=== PATIENT | male | born 1980 | race Caucasian/White ===

== ENCOUNTER 2023-11-08 21:44 | Emergency (ER) | payer BC ==
[2023-11-08 22:57] LABS: Absolute Basophils 0.1 K/uL (0-0.5); Absolute Eosinophils 0.1 K/uL (0-0.5); Absolute Lymphocytes (CBC) 1.4 K/uL (0.7-4.9); Absolute Monocytes 0.9 K/uL (0.1-1.3); Absolute Neutrophil 20.6 K/uL (1.8-8.0); Basophils % 0.4 % (0-1.3); Eosinophils % 0.4 % (0-4.4); Hematocrit 39.1 % (39.6-49.0); Hemoglobin 13.2 g/dL (13.6-17.9); MCHC 33.9 g/dL (32.0-36.0); MCV 91.3 fL (80-100); MPV 7.2 fL (7.6-11.3); Monocytes % 3.9 % (3.3-12.3); Neutrophils % 89.3 % (41.7-73.7); Platelets 455 thou/uL (152-406); RBC Red Blood Cell Count 4.28 M/uL (4.33-5.43); Red Cell Distribution Width 12.9 % (12.1-15.2)
[2023-11-08 23:00] LABS: PTT, Activated Partial Thromb 29.4 SECONDS (24.3-36.9); Protime INR 1.57
[2023-11-08 23:14] LABS: Albumin 2.6 g/dL (3.4-5.0); Albumin/Globulin Ratio 0.5 (1.1-1.8); Anion Gap 10.7 mEq/L (5.0-15.0); Bilirubin Total 0.7 mg/dL (0.2-1.0); Globulin 5.2 g/dL (2.3-3.5); Potassium 3.7 mEq/L (3.5-5.1); Protein, Total 7.8 g/dL (6.4-8.2)
--- NOTE | 2023-11-09 01:30 | EDPHYS ---
Physician Documentation [facility] Name: Khoi Brooks Age: 43 yrs Sex: Male : 1980 Arrival Date: 11/08/2023 Time: 21:44 Bed 14 Private MD: ED Physician Branden Macario HPI: 11/08 00:19 This 43 yrs old Male presents to ER via Wheelchair with complaints of Post Surgical kb Bleeding, Post Surgical Pain. 00:20 Pt is a 43 year old male who presents for purulent drainage from AIDEN drain site that kb started yesterday. Pt reports he was driving through [place] last week and his appendix ruptured. Pt was admitted to a hospital there for 2 days and had an appendectomy. States he had a AIDEN drain to [facility] until yesterday when he went back to [place] for a follow up and the surgeon removed it. States he had clear drainage from drain prior to it being removed. He drove home from [place] and noticed thick, white drainage from the spot they pulled the drain from. States the drainage has increased so that is what prompted his visit today. Denies pain, fever. . Historical: - Allergies: 11/07 22:04 No Known Allergies; vc1 - Home Meds: 22:04 unknown antibiotics [Active]; vc1 - PMHx: 22:04 None; vc1 - PSHx: 22:04 Appendectomy; vc1 - Immunization history:: Adult Immunizations up to date, Client reports having NOT received the Covid vaccine. Flu vaccine is not up to date. - Infectious Disease History:: Denies. - Social history:: Smoking status: Patient denies any tobacco usage or history of. Patient/guardian denies using alcohol, street drugs. ROS: 23:04 Constitutional: As per HPI kb Exam: 23:04 Constitutional: This is a well developed, well nourished patient who is awake, alert, kb and in no acute distress. Head/Face: Normocephalic, atraumatic. ENT: Moist Mucous membranes Cardiovascular: Regular rate Respiratory: Respirations even and unlabored. No increased work of breathing. Talking in full sentences Skin: Warm, dry with normal turgor. Normal color. MS/ Extremity: Pulses equal, no cyanosis. Neurovascular intact. Full, normal range of motion. Neuro: Awake and alert, GCS 15, oriented to person, place, time, and situation. Moves all extremities. Normal gait. 23:04 ECG was reviewed by the Attending Physician. 11/08 01:11 Abdomen/GI: Inspection: erythema to LLQ surrounding open wound from AIDEN drain, Bowel kb sounds: normal, Palpation: soft, in all quadrants, mild abdominal tenderness, in the right lower quadrant, moderate abdominal tenderness, in the left lower quadrant, Vital Signs: 11/07 22:01 BP 138 / 96; Pulse 97; Resp 16 S; Temp 98.8(TE); Pulse Ox 97% on R/A; Weight 77.11 kg vc1 (R); Height 5 ft. 11 in. (R); 23:00 BP 137 / 80; Pulse 84; Resp 17 S; Pulse Ox 97% on R/A; ha1 11/08 00:00 BP 125 / 76; Pulse 80; Resp 17 S; Pulse Ox 99% on R/A; ha1 01:00 BP 123 / 73; Pulse 77; Resp 17 S; Pulse Ox 100% ; ha1 02:00 BP 118 / 67; Pulse 71; Resp 17 S; Pulse Ox 97% on R/A; ha1 03:00 BP 127 / 68; Pulse 71; Resp 18 S; Temp 98.6(O); Pulse Ox 97% on R/A; ha1 11/07 22:01 Body Mass Index 23.71 (77.11 kg, 180.34 cm) vc1 MDM: 11/07 21:55 Patient medically screened. 11/08 00:19 Data reviewed: vital signs, nurses notes. kb 00:23 Differential diagnosis: abscess, peritonitis. kb 00:43 Management of patient was discussed with the following: Mechanical Supervisor: Dr Cantu, recommends transfer for interventional radiology. 01:12 Consideration of Admission/Observation Escalation of care including kb admission/observation considered. admission considered, Dr Cantu recommends transfer. Counseling: I had a detailed discussion with the patient and/or guardian regarding the historical points, exam findings, and any diagnostic results supporting the discharge/admit diagnosis, lab results, radiology results, the need to transfer to another facility, [facility] does not immediately have the required specialist. 01:27 Management of patient was discussed with the following: Dr Francis, general kb surgeon, accepts pt for consult. Dr. Islas , hospitalist at [facility] accepts pt for transfer. 11/07 22:09 Order name: Blood Culture Adult (2) kb 11/07 22:09 Order name: CBC with Diff; Complete Time: 23:03 kb 11/07 22:09 Order name: CMP; Complete Time: 23:15 kb 11/07 22:09 Order name: Lactate w/ 2H reflex if indic.; Complete Time: 23:24 kb 11/07 22:09 Order name: Protime (+inr); Complete Time: 23:03 kb 11/07 22:09 Order name: Ptt, Activated; Complete Time: 23:03 kb 11/07 22:09 Order name: Wound Culture kb 11/07 22:09 Order name: CT Abd/Pelvis - IV Contrast Only kb 11/07 22:09 Order name: EKG; Complete Time: 22:10 kb 11/07 22:09 Order name: Accucheck; Complete Time: 23:06 kb 11/07 22:09 Order name: Cardiac monitoring; Complete Time: 22:19 kb 11/07 22:09 Order name: EKG - Nurse/Tech; Complete Time: 22:19 kb 11/07 22:09 Order name: Labs collected and sent; Complete Time: 22:29 kb 11/07 22:09 Order name: O2 Per Protocol; Complete Time: 22:19 kb 11/07 22:09 Order name: O2 Sat Monitoring; Complete Time: 22:19 kb 11/07 22:09 Order name: Vital Signs; Complete Time: 22:29 kb EC/20 23:04 Rate is 86 beats/min. Rhythm is regular. QRS [place] is Normal. NM interval is normal at kb 166 msec. QRS interval is normal at 96 msec. QT interval is normal at 433 msec. Administered Medications: 11/08 01:30 Drug: Piperacillin-Tazobactam IVPB 3.375 grams IVPB once over 60 mins; (mix in NS 100 ha1 mL) Route: IVPB; Infused Over: 60 mins; Site: right antecubital; 02:30 Follow up: Response: No adverse reaction; IV Status: Completed infusion; IV Intake: ha1 100ml 01:31 Drug: Ketorolac IVP 15 mg IVP once Route: IVP; Site: right antecubital; ha1 02:00 Follow up: Response: No adverse reaction; Marked relief of symptoms; Pain is decreased ha1 01:33 Drug: NS 0.9% IV 1000 ml IV at 1000 ml once Route: IV; Rate: 1000 ml; Site: right ha1 antecubital; 03:00 Follow up: Response: No adverse reaction; IV Status: Completed infusion; IV Intake: ha1 1000ml 01:33 Drug: Ondansetron IVP 4 mg IVP once; over 2 minutes Route: IVP; Site: right antecubital;ha1 02:00 Follow up: Response: No adverse reaction; Marked relief of symptoms ha1 Disposition: 22:11 Co-signature as Attending Physician, Branden Macario MD I agree with the assessment sp4 and plan of care. I reviewed the patient's care provided by the Advanced Practice Provider and agree with the diagnosis and treatment plan. Disposition Summary: 11/09/23 01:30 Transfer Ordered Notes: Transfer Location: [facility] kb Reason: Higher level of care kb Condition: Stable kb Problem: new kb Symptoms: are unchanged kb Accepting Physician: Dr. Islas(11/09/23 03:09) ha1 Diagnosis - Intra-abdominal abscess s/p appendectomy kb - Elevated white blood cell count kb Forms: - Medication Reconciliation Form kb - SBAR form kb Signatures: Dispatcher [employer] Soco Mandel, NOEL-C [employer]ITER-Socorro Simpson RN RN vc1 Rosa Wheeler RN RN ha1 Branden Macario MD MD sp4 Corrections: (The following items were deleted from the chart) 11/07 22:10 22:10 BLOOD CULTURE*+BA.LAB.BRZ ordered. EDMS EDMS 22:10 22:10 CBC+H.LAB.BRZ ordered. EDMS EDMS 22:10 22:10 COMPREHENSIVE METABOLIC PANEL+C.LAB.BRZ ordered. EDMS EDMS 22:10 22:10 LACTATE+C.LAB.BRZ ordered. EDMS EDMS 22:10 22:10 PROTIME (+INR)+COAG.LAB.BRZ ordered. EDMS EDMS 22:10 22:10 PTT, ACTIVATED+COAG.LAB.BRZ ordered. EDMS EDMS 22:10 22:10 Wound Culture+BA.LAB.BRZ ordered. EDMS EDMS 11/08 01:38 01:27 Management of patient was discussed with the following: Dr Francis, general kb surgeon, accepts pt for consult. , hospitalist at [facility] accepts pt for transfer. kb 01:38 01:30 Dr segovia kb 03:09 01:38 Dr. Islas ha1
--- NOTE | 2023-11-09 01:30 | ER ---
Nurse's Notes [facility] Name: Khoi Brooks Age: 43 yrs Sex: Male : 1980 Arrival Date: 11/08/2023 Time: 21:44 Bed 14 Private MD: Diagnosis: Intra-abdominal abscess s/p appendectomy;Elevated white blood cell count Presentation: 11/07 22:01 Chief complaint: Patient states: AIDEN drain removed yesterday post appy. new bloody vc1 drainage from site. Coronavirus screen: Client denies travel out of the [place] in the last 14 days. At this time, the client does not indicate any symptoms associated with coronavirus-19. Ebola Screen: No symptoms or risks identified at this time. Initial Sepsis Screen: Does the patient meet any 2 criteria? No. Patient's initial sepsis screen is negative. Does the patient have a suspected source of infection? No. Patient's initial sepsis screen is negative. Risk Assessment: Do you want to hurt yourself or someone else? Patient reports no desire to harm self or others. Onset of symptoms was November 08, 2023. 22:01 Method Of Arrival: Wheelchair vc1 22:01 Acuity: KEARA 3 vc1 Triage Assessment: 22:04 General: Appears in no apparent distress. uncomfortable, Behavior is calm, cooperative. vc1 Pain: Denies pain. EENT: No deficits noted. No signs and/or symptoms were reported regarding the EENT system. Neuro: No deficits noted. Cardenas Agitation-Sedation Scale (RASS): 0 - Alert and Calm Level of Consciousness is awake, alert, obeys commands, Oriented to person, place, time, situation. Cardiovascular: No deficits noted. Denies chest pain, shortness of breath, Capillary refill < 3 seconds Clubbing of nail beds is absent JVD is absent Patient's skin is warm and dry. Respiratory: No deficits noted. Airway is patent Respiratory effort is even, unlabored, Respiratory pattern is regular, symmetrical. GI: Abdomen is flat, non-distended. : No deficits noted. No signs and/or symptoms were reported regarding the genitourinary system. Derm: Skin is intact, is healthy with good turgor, Skin is dry, Skin is normal, Skin temperature is warm Wound noted left lower quadrant Reports drainage from AIDEN drain site. Musculoskeletal: No deficits noted. No signs and/or symptoms reported regarding the musculoskeletal system. Circulation, motion, and sensation intact. Range of motion: intact in all extremities. Historical: - Allergies: 22:04 No Known Allergies; vc1 - Home Meds: 22:04 unknown antibiotics [Active]; vc1 - PMHx: 22:04 None; vc1 - PSHx: 22:04 Appendectomy; vc1 - Immunization history:: Adult Immunizations up to date, Client reports having NOT received the Covid vaccine. Flu vaccine is not up to date. - Infectious Disease History:: Denies. - Social history:: Smoking status: Patient denies any tobacco usage or history of. Patient/guardian denies using alcohol, street drugs. Screenin/21 03:00 [facility] ED Fall Risk Assessment (Adult) History of falling in the last 3 months, ha1 including since admission No falls in past 3 months (0 pts) Confusion or Disorientation No (0 pts) Intoxicated or Sedated No (0 pts) Impaired Gait No (0 pts) Mobility Assist Device Used No (0 pt) Altered Elimination No (0 pt) Score/Fall Risk Level 0 - 2 = Low Risk. Abuse screen: Denies threats or abuse. Denies injuries from another. Nutritional screening: No deficits noted. Tuberculosis screening: No symptoms or risk factors identified. Assessment: 11/07 22:08 General: Appears uncomfortable, Behavior is cooperative. Pain: Complains of pain in ha1 left lower quadrant Pain does not radiate. Pain currently is 7 out of 10 on a pain scale. Quality of pain is described as aching, Pain began 1 day ago. Neuro: Level of Consciousness is awake, alert, obeys commands, Oriented to person, place, time, situation. Cardiovascular: Capillary refill < 3 seconds Patient's skin is warm and dry. Respiratory: Airway is patent Respiratory effort is even, unlabored, Respiratory pattern is regular, symmetrical. GI: DRAINING WOUND ON LEFT LOWER QUADRANT. PT. STATED" I HAD MY DRAINING TUBE REMOVED YESTERDAY AND NOW I AM DRAINING THIS TERRIBLE BAD ODOR LIQUID.". 22:08 GI: Bowel sounds present X 4 quads. Reports PAIN IN THE LEFT LOWER QUADRANT. : No ha1 signs and/or symptoms were reported regarding the genitourinary system. Derm: Skin is pink, warm \\T\\ dry. Musculoskeletal: Circulation, motion, and sensation intact. Range of motion: intact in all extremities. 23:00 Reassessment: Patient and/or family updated on plan of care and expected duration. Pain ha1 level reassessed. Patient is alert, oriented x 3, equal unlabored respirations, skin warm/dry/pink. 11/08 00:00 Reassessment: Patient and/or family updated on plan of care and expected duration. Pain ha1 level reassessed. Patient is alert, oriented x 3, equal unlabored respirations, skin warm/dry/pink. 01:00 Reassessment: Patient and/or family updated on plan of care and expected duration. Pain ha1 level reassessed. Patient is alert, oriented x 3, equal unlabored respirations, skin warm/dry/pink. 02:00 Reassessment: Patient and/or family updated on plan of care and expected duration. Pain ha1 level reassessed. Patient is alert, oriented x 3, equal unlabored respirations, skin warm/dry/pink. 03:00 Reassessment: Patient and/or family updated on plan of care and expected duration. Pain ha1 level reassessed. Patient is alert, oriented x 3, equal unlabored respirations, skin warm/dry/pink. BEING TRANSFER BY EMS. Vital Signs: 11/07 22:01 BP 138 / 96; Pulse 97; Resp 16 S; Temp 98.8(TE); Pulse Ox 97% on R/A; Weight 77.11 kg vc1 (R); Height 5 ft. 11 in. (R); 23:00 BP 137 / 80; Pulse 84; Resp 17 S; Pulse Ox 97% on R/A; ha1 11/08 00:00 BP 125 / 76; Pulse 80; Resp 17 S; Pulse Ox 99% on R/A; ha1 01:00 BP 123 / 73; Pulse 77; Resp 17 S; Pulse Ox 100% ; ha1 02:00 BP 118 / 67; Pulse 71; Resp 17 S; Pulse Ox 97% on R/A; ha1 03:00 BP 127 / 68; Pulse 71; Resp 18 S; Temp 98.6(O); Pulse Ox 97% on R/A; ha1 11/07 22:01 Body Mass Index 23.71 (77.11 kg, 180.34 cm) vc1 ED Course: 11/07 21:45 Patient arrived in ED. jj6 21:55 Soco Dodge FNP-C [facility] kb 21:55 Branden Macario MD is Attending Physician. kb 22:03 Triage completed. vc1 22:04 Arm band placed on right wrist. vc1 22:08 Patient has correct armband on for positive identification. Placed in gown. Bed in low ha1 position. Call light in reach. Side rails up X 1. 22:19 Rosa Wheeler, BOOKER is Primary Nurse. ha1 22:24 EKG done, by electrical instrumentation technician. reviewed by Soco MEADOWS. oe 22:30 Inserted saline lock: 20 gauge in right antecubital area, using aseptic technique. ha1 Blood collected. 22:30 First set of blood cultures drawn by me, Wound culture swab sent to lab. ha1 22:45 Inserted saline lock: 20 gauge in left forearm, using aseptic technique. Blood ha1 collected. 22:45 Second set of blood cultures drawn by me. ha1 23:43 CT Abd/Pelvis - IV Contrast Only In Process Unspecified. EDMS 11/08 00:21 Blood Culture Adult (2) Sent. ha1 00:33 Attempted to initiate transfer with [facility], No Answer. Will call back. rv1 00:42 Initiated transfer with Sandra at [facility]. rv1 03:00 Provided Education on: NEED FOR TRANSFER . ha1 03:00 No provider procedures requiring assistance completed. Patient transferred, IV remains ha1 in place. Administered Medications: 01:30 Drug: Piperacillin-Tazobactam IVPB 3.375 grams IVPB once over 60 mins; (mix in NS 100 ha1 mL) Route: IVPB; Infused Over: 60 mins; Site: right antecubital; 02:30 Follow up: Response: No adverse reaction; IV Status: Completed infusion; IV Intake: ha1 100ml 01:31 Drug: Ketorolac IVP 15 mg IVP once Route: IVP; Site: right antecubital; ha1 02:00 Follow up: Response: No adverse reaction; Marked relief of symptoms; Pain is decreased ha1 01:33 Drug: NS 0.9% IV 1000 ml IV at 1000 ml once Route: IV; Rate: 1000 ml; Site: right ha1 antecubital; 03:00 Follow up: Response: No adverse reaction; IV Status: Completed infusion; IV Intake: ha1 1000ml 01:33 Drug: Ondansetron IVP 4 mg IVP once; over 2 minutes Route: IVP; Site: right antecubital;ha1 02:00 Follow up: Response: No adverse reaction; Marked relief of symptoms ha1 Medication: 03:00 VIS not applicable for this client. ha1 Intake: 02:30 IV: 100ml; Total: 100ml. ha1 03:00 IV: 1000ml; Total: 1100ml. ha1 Outcome: 01:30 ER care complete, transfer ordered by MD. segovia 03:00 Condition: stable ha1 03:00 Instructed on the need for transfer, Demonstrated understanding of instructions, ha1 03:08 Transferred by ground EMS to [facility], Transfer form completed. ha1 X-rays sent w/ patient. 03:09 Patient left the ED. ha1 Signatures: Dispatcher [employer] EDMS Soco Dodge, [employer]-Ckb Xu Mendoza Jennifer jj6 Socorro Harris RN RN 1 Rosa Wheeler RN RN ha1 Aliya Montes rv1 Corrections: (The following items were deleted from the chart) 03:20 00:28 BP 125 / 76; Pulse 80bpm; Resp 17bpm; Spontaneous; Pulse Ox 99% RA; ha1 ha1 03:20 01:29 BP 123 / 73; Pulse 77bpm; Resp 17bpm; Spontaneous; Pulse Ox 100%; ha1 ha1
[2023-11-09] MEDS ORDERED: PIPERACIL/TAZO 3.375 GM VIAL IV ONE (01:33)
[2023-11-09] MEDS ORDERED: NA CHLORIDE 0.9% 100 ML ONE (01:33)
[2023-11-09] MEDS ORDERED: KETOROLAC 30 MG/ML INJ ONE (01:33)
[2023-11-09] MEDS ORDERED: ONDANSETRON 4 MG/2 ML VIAL ONE (01:33)
[2023-11-09] MEDS ORDERED: NA CHLORIDE 0.9% 1,000 ML ONE (01:34)
[2023-11-09 03:38] VITALS: BP 123/73; TEMP 98.8; O2SAT 100
--- NOTE | 2023-11-09 20:02 | RAD REPORT ---
EXAM DESCRIPTION: CT - Abdomen Pelvis W Contrast - 11/09/2023 6:52 am CLINICAL HISTORY: The patient is 43 years old and is Male; drainage s/p appendectomy TECHNIQUE: Axial computed tomography images of the abdomen and pelvis with intravenous contrast. S agittal and coronal reformatted images were created and reviewed. This CT exam was performed using one or more of the following dose reduction techniques: automated exposure control, adjustment of t he mA and/or kV according to patient size, and/or use of iterative reconstruction technique. COMPARISON: No relevant prior studies available. FINDINGS: LUNG BASES: Unremarkable. No mass. No consolidation. ABDOMEN: LIVER: The liver is enlarged and fatty. GALLBLADDER AND BILE DUCTS: The gallbladder is contracted. No calcified gallstones or ductal dila tation is seen. PANCREAS: No ductal dilation. No mass. SPLEEN: Unremarkable. ADRENALS: Unremarkable. No mass. KIDNEYS AND URETERS: Unremarkable. The kidneys enhance symmetrically. No obstructing renal or ure teral calculus is seen. No hydronephrosis or hydroureter. No perinephric fluid or stranding. STOMACH AND BOWEL: Stomach is distended with food contents and air. The small bowel is normal in caliber. Stool is present throughout the colon. There is no evidence of mucosal thickening or obstruc tion. PELVIS: APPENDIX: The appendix is surgically absent. BLADDER: Unremarkable. No mass. REPRODUCTIVE: Unremarkable as visualized. ABDOMEN and PELVIS: INTRAPERITONEAL SPACE: Free fluid is present within the pelvis. No free air. RETROPERITONEAL SPACE: A linear enhancing fluid collection along the lower anterior pelvis is pre sent which appears to extend along a tract from prior drain. This portion of the collection measures 15.2 x 1.0 cm on axial image 63. The collection extends superiorly along the right retroperitoneum an d measures grossly 8.7 x 8.0 x 5.0 at largest point. This is adjacent and lateral to the right psoas muscle. BONES/JOINTS: No acute fracture. SOFT TISSUES: Inflammatory stranding and edema along the left lower pelvis and rectus muscle exte nding to the skin surface is present. VASCULATURE: Unremarkable. No abdominal aortic aneurysm. LYMPH NODES: Unremarkable. No enlarged lymph nodes. IMPRESSION: Findings consistent with an abscess which extends along the tract of a prior surgical dr carlton and into the right retroperitoneum as described. Electronically signed by: Breana Richards MD 11/09/2023 12:18 AM CDT Due to temporary technical issues with the PACS/Fluency reporting system, reports are being signed by the in house radiologists without review as a courtesy to insure prompt reporting. The interpreting radiologist is fully responsible for the content of the report.
== END 2023-11-09 03:09 | disposition short-term general hospital (02) ==
LOC: ER 21:44
DX: K68.11 Postprocedural retroperitoneal abscess (principal); Z98.890 Other specified postprocedural states; D72.829 Elevated white blood cell count, unspecified; Z28.310 Unvaccinated for COVID-19
CPT/HCPCS: 96365; 93005; 87040 ×2; 87070; 85025; 36415; 87205; 85610; 83605; 85730; 87077; 87186; 80053; 74177; 96375; 99285; Q9967; J2543; J2405; J7030